=== PATIENT | male | born 1990 | race Hispanic/Latino ===

== ENCOUNTER 2023-12-05 16:35 | Emergency (ER) | payer OTHER, SELFPAY ==
[2023-12-05] VITALS (13 sets, daily range): BP systolic 96–127; BP diastolic 52–77; PULSE 75–91; RESP 18; TEMP 36; O2SAT 93–99; BMI 29.0
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
[2023-12-05] MEDS: MORPHINE 4 MG/ML INJ IV (16:58)
[2023-12-05] MEDS: ONDANSETRON 4 MG/2 ML INJ IV (16:58)
--- NOTE | 2023-12-05 18:27 | DI.CT.S_ITS ---
PROCEDURE: CT LE RT WO CON INDICATIONS: crush injury TECHNIQUE: Noncontrast 1-1.5 mm axial sections acquired from above the tibiotalar joint to the bottom of the calcaneus, with coronal and sagittal reformats. COMPARISON: [facility], CR, XR FOOT RT MIN 3V, 12/05/2023, 16:29. [facility], CR, XR ANKLE RT MIN 3V, 12/05/2023, 16:29. FINDINGS: Image quality: Diagnostic Bones: No suspicious osseous lesions. Nondisplaced fracture involving the base of the right 2nd metatarsal. No definite extension to the tarsometatarsal joint. Overall alignment is maintained. Other osseous structures appear intact. Soft tissues: Diffuse soft tissue swelling of the right foot. IMPRESSION: Nondisplaced fracture involving the base of the right 2nd metatarsal without definite extension to the tarsometatarsal joint. Dictated by: Bhupendra Mak M.D. on 12/05/2023 at 19:42 Approved by: Bhupendra Mak M.D. on 12/05/2023 at 19:47
[2023-12-05] MEDS: HYDROCODONE/ACET 5/325 PREPACK 1 BOTTLE MISC (19:36)
== END 2023-12-05 20:10 | disposition home or self-care (01) ==
PROVIDERS: Emergency Provider Emergency Medicine
DX: S92.324A Nondisplaced fracture of second metatarsal bone, right foot, initial encounter for closed fracture (principal); W22.8XXA Striking against or struck by other objects, initial encounter
CPT/HCPCS: 73610; 73630; 73700; 96374; 96375; 99284; J2270; J2405

== ENCOUNTER → 2023-12-31 07:42 | Outpatient (CLI) | payer OTHER, SELFPAY ==
--- NOTE | 2023-12-31 07:44 | DI.MRI.S_ITS ---
PROCEDURE: MR ANKLE RT WO CON INDICATIONS: Pain in right ankle and joints of right foot TECHNIQUE: Noncontrast sagittal T1 spin echo and T2 fast spin echo with fat saturation, axial proton density fast spin echo and T2 fast spin echo with fat saturation, coronal T1 spin echo and T2 fast spin echo with fat saturation through the ankle/hindfoot. COMPARISON: None. FINDINGS: Image quality: Excellent. Bones and joints: There is significant marrow edema involving inferior portion of the cuneiform is as well as 1st through 4th metatarsal bases without definite fracture line seen. Mild edema is also seen involving superior aspect of distal calcaneus with mild osteoarthritic changes with adjacent inferior and lateral aspect of navicular bone. 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 No osteochondral injuries of talar dome. No significant joint effusion or calcified intra-articular loose body. Tiny plantar and dorsal calcaneal enthesophytes are seen. Medial structures: The posterior tibialis , flexor digitorum longus, and flexor hallucis longus tendons are intact. Small amount of fluid distending flexor tendon sheath is seen. The posterior tibial neurovascular bundle appears normal within the tarsal tunnel, without extrinsic mass effect. The deep layer (anterior and posterior tibiotalar ligaments) and superficial layer (tibionavicular, tibiospring, and tibiocalcaneal ligaments) of the deltoid ligament appear normal. The spring ligament components (superomedial calcaneonavicular, medioplantar oblique calcaneonavicular, and inferoplantar longitudinal ligaments) are intact. Lateral structures: The anterior talofibular ligament is thickened. The calcaneofibular, and posterior talofibular ligaments appear intact. More superiorly, the anterior and posterior tibiofibular ligaments appear intact, as is the intermalleolar ligament. The tibiofibular syndesmosis is normal in width at 2 mm or less. The peroneus brevis tendon is intact. Thickened peroneus longus tendon at the level of distal calcaneus extending to the level of tarsal metatarsal joint is seen. The sinus tarsi demonstrates normal fatty signal, without edema, fibrosis, or cyst formation. Visualized sinus tarsi components (cervical ligament, interosseous talocalcaneal ligament, roots of the inferior extensor retinaculum) appear normal. Anterior structures: The tibialis anterior, extensor hallucis longus, and extensor digitorum longus tendons appear intact. The dorsal talonavicular ligament appears intact. Posterior and plantar structures: Achilles tendon is mildly thickened at its posterior calcaneal insertion. Medial and lateral bands of the plantar fascia are of normal thickness. No abductor digiti quinti muscle atrophy to suggest Jackson neuropathy. IMPRESSION: 1. Finding is consistent with bony contusion involving cuboid bones and 1st through 4th metatarsal bases. No definite fracture is seen. 2. 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 No osseous coalition is seen. No osteochondral injuries of talar dome. 3. Low-grade tenosynovitis involving flexor tendons. 4. Mild tendinosis involving peroneus longus tendon at the level of distal calcaneus extending to the level of TMT joints. 5. Low-grade ATFL sprain. No ankle ligament rupture. 6. Very low-grade distal Achilles tendinosis at its posterior calcaneal insertion. No Achilles tendon rupture. Dictated by: Timo Hatch M.D. on 12/31/2023 at 10:46 Approved by: Timo Hatch M.D. on 12/31/2023 at 11:00
== END ==
LOC: MRI 07:43
PROVIDERS: Referring Provider Orthopaedic Surgery Orthopaedic Surgery of the Spine; Visit Provider Orthopaedic Surgery Orthopaedic Surgery of the Spine
DX: M25.571 Pain in right ankle and joints of right foot (principal); M25.471 Effusion, right ankle; M89.8X7 Other specified disorders of bone, ankle and foot; M65.871 Other synovitis and tenosynovitis, right ankle and foot; S93.491A Sprain of other ligament of right ankle, initial encounter
CPT/HCPCS: 73721

== ENCOUNTER → 2024-04-07 17:07 | Outpatient (CLI) | payer OTHER, SELFPAY ==
--- NOTE | 2024-04-07 17:11 | DI.MRI.S_ITS ---
PROCEDURE: MR ANKLE RT WO CON INDICATIONS: crushing injury of right foot/midfoot pain TECHNIQUE: Noncontrast sagittal T1 spin echo and T2 fast spin echo with fat saturation, axial proton density fast spin echo and T2 fast spin echo with fat saturation, coronal T1 spin echo and T2 fast spin echo with fat saturation through the ankle/hindfoot. COMPARISON: [facility], MR, MR ANKLE RT WO CON, 12/31/2023, 8:37. FINDINGS: Image quality: Excellent Tendons: Mild tenosynovitis of the posterior tibialis and the flexor digitorum longus. The flexor hallucis longus is unremarkable. The extensor tendons are unremarkable. Longitudinal split tear of the peroneal brevis. The peroneal longus is unremarkable. Mild tendinosis of the distal Achilles tendon, without tear. Ligaments: The anterior and the posterior tibiofibular ligament is intact. The anterior and the posterior talofibular ligament are intact. The calcaneofibular ligament is intact. The deep portion deltoid ligament is unremarkable. Sinus tarsi: No fibrosis Plantar fascia: Unremarkable Muscle: Normal in signal Bones: Normal in signal. No marrow edema. No acute fracture. Small amount of fluid in the posterior subtalar recess. IMPRESSION: 1. Mild tenosynovitis of the flexor tendons 2. Mild tendinosis distal Achilles tendon, without tear. 3. Previously seen marrow edema in the midfoot has resolved. No acute fracture. Dictated by: Lizy Tello M.D. on 04/08/2024 at 12:30 Approved by: Lizy Tello M.D. on 04/08/2024 at 12:38
== END ==
LOC: MRI 17:10
PROVIDERS: Referring Provider Orthopaedic Surgery Foot and Ankle Surgery; Visit Provider Orthopaedic Surgery Foot and Ankle Surgery
DX: S97.81XD Crushing injury of right foot, subsequent encounter (principal); M65.871 Other synovitis and tenosynovitis, right ankle and foot; X58.XXXA Exposure to other specified factors, initial encounter
CPT/HCPCS: 73721